=== PATIENT | male | born 1965 | race Caucasian/White ===

== ENCOUNTER 2019-01-03 13:57 | Emergency (ER) | payer OTHER ==
--- NOTE | 2019-01-03 15:07 | RAD ---
Exam: Single view of the chest and 2 views of the abdomen HISTORY: Abdominal pain and constipation COMPARISON: None FINDINGS: 2 views of the abdomen and a single view the chest shows a nonspecific, nonobstructive greg l gas pattern. Air is seen to the level of the rectum. No significant stool retention is seen. No free air or air-fluid levels are seen and upright examination. The cardiomediastinal silhouette is normal in size. There is no evidence of consolidation, mass, or p leural effusion. IMPRESSION: Nonobstructive bowel gas pattern
[2019-01-03 15:15] LABS: #Basophils 0.1 thou/uL (0.0-0.2); #Eosinphils 0.2 thou/uL (0.0-0.7); #Lymphocytes 1.2 thou/uL (1.20-3.40); #Monocytes 0.6 thou/uL (0.11-0.59); #Neutrophils 6.2 thou/uL (1.40-6.50); %Basophils 0.9 % (0.0-1.0); %Eosinophils 2.1 % (0.0-10.0); %Lymphocytes 14.9 % (21.0-51.0); %Monocytes 6.8 % (0.0-10.0); %Neutrophils 75.2 % (42.0-75.0); Hemoglobin 13.7 g/dL (14.0-18.0); Mean Corpuscular HGB CONC 32.5 g/dL (32.0-36.0); Mean Corpuscular Hemoglobin 28.6 pg (27.0-31.0); Mean Corpuscular Volume 88.2 fL (78.0-98.0); Mean Platelet Volume 6.3 fL (7.4-10.4); Platelet Count 196 thou/uL (130-400); RBC Distribution Width 12.4 % (11.5-14.5); Red Blood Cell (RBC) Count 4.77 mill/uL (4.70-6.10); White Blood Cell (WBC) Count 8.3 thou/uL (4.8-10.8)
[2019-01-03] MEDS ORDERED: cefTRIAXone\\ROCEPHIN 1 GM VIAL ONE (15:15)
[2019-01-03] MEDS ORDERED: Morphine 4 MG/ML VIAL ONE (15:15)
[2019-01-03 15:33] LABS: ALT (SGPT) 14 U/L (8-55); AST (SGOT) 5 U/L (5-34); Albumin 3.7 g/dL (3.5-5.0); Alkaline Phosphatase 119 U/L (40-150); Anion Gap 11 mmol/L (10-20); BUN (Urea Nitrogen) 11 mg/dL (8.4-25.7); Bilirubin, Total 0.6 mg/dL (0.2-1.2); Calc. Creatinine Clearance 0 mL/min (70-130); Calcium 8.7 mg/dL (7.8-10.44); Carbon Dioxide 26 mmol/L (22-29); Chloride 105 mmol/L (98-107); Estimated GFR-MDRD 81; Globulin 3.2 g/dL (2.4-3.5); Glucose 96 mg/dL (70-105); Lipase 11 U/L (8-78); Potassium 3.9 mmol/L (3.5-5.1); Protein, Total 6.9 g/dL (6.0-8.3); Sodium 138 mmol/L (136-145)
== END 2019-01-03 16:00 | disposition home or self-care (01) ==
LOC: MADERS 13:57
DX: K43.9 Ventral hernia without obstruction or gangrene (principal); K59.00 Constipation, unspecified; L03.114 Cellulitis of left upper limb; F17.210 Nicotine dependence, cigarettes, uncomplicated; Z79.899 Other long term (current) drug therapy; Z79.51 Long term (current) use of inhaled steroids
CPT/HCPCS: 74022; 80053; 83605; 83690; 84484; 85025; 96374; 96375; J0696; J2270

== ENCOUNTER 2020-03-11 18:36 | Emergency (ER) | payer OTHER, SELFPAY ==
[~2020-03-11 18:36] MED LIST: Iopamidol 370 76% 100 ML VIAL ONE
[2020-03-11 19:39] LABS: #Basophils 0.1 thou/uL (0.0-0.2); #Eosinphils 0.2 thou/uL (0.0-0.7); #Monocytes 0.6 thou/uL (0.11-0.59); #Neutrophils 5.9 thou/uL (1.40-6.50); %Basophils 0.8 % (0.0-1.0); %Eosinophils 2.8 % (0.0-10.0); %Lymphocytes 22.3 % (21.0-51.0); %Monocytes 6.8 % (0.0-10.0); %Neutrophils 67.2 % (42.0-75.0); Hemoglobin 13.8 g/dL (14.0-18.0); Mean Corpuscular HGB CONC 31.7 g/dL (32.0-36.0); Mean Corpuscular Hemoglobin 27.5 pg (27.0-31.0); Mean Corpuscular Volume 86.8 fL (78.0-98.0); Mean Platelet Volume 6.5 fL (7.4-10.4); Platelet Count 238 thou/uL (130-400); RBC Distribution Width 12.6 % (11.5-14.5); Red Blood Cell (RBC) Count 5.03 mill/uL (4.70-6.10); White Blood Cell (WBC) Count 8.8 thou/uL (4.8-10.8)
--- NOTE | 2020-03-11 19:54 | RAD ---
EXAM: 4 views of the right knee HISTORY: Knee pain after trauma COMPARISON: None FINDINGS: No knee effusion is seen. There is no evidence of acute fracture or dislocation. Mild to mo derate tricompartmental degenerative changes are seen. No soft tissue swelling is present. IMPRESSION: Right knee osteoarthritis without evidence of acute osseous abnormality.
[2020-03-11 20:04] LABS: Anion Gap 15 mmol/L (10-20); BUN (Urea Nitrogen) 13 mg/dL (8.4-25.7); CK (CPK) 158 U/L (30-200); Calc. Creatinine Clearance 0 mL/min (70-130); Calcium 8.7 mg/dL (7.8-10.44); Carbon Dioxide 24 mmol/L (22-29); Chloride 103 mmol/L (98-107); Estimated GFR-MDRD 71; Glucose 109 mg/dL (70-105); Potassium 3.7 mmol/L (3.5-5.1); Sodium 138 mmol/L (136-145)
--- NOTE | 2020-03-11 20:08 | CT ---
EXAM: CT brain without contrast HISTORY: Head trauma COMPARISON: None TECHNIQUE: Multiple contiguous axial images were obtained and a CT of the brain without contrast. Sag ittal and coronal reformats were performed. FINDINGS: The brain is normal in morphology and attenuation without focal lesions or confluent areas of infarction. There is no evidence of hydrocephalus, intracranial hemorrhage, or extra-axial fluid collection. The calvarium and overlying soft tissues are unremarkable. There is partial opacification of the bila teral mastoid air cells. Chronic sinus changes are seen in the left maxillary sinus. IMPRESSION: No evidence of acute intracranial abnormality
--- NOTE | 2020-03-11 20:17 | CT ---
EXAM: 1. CT of the chest with contrast 2. CT of the abdomen and pelvis with contrast 3. Limited CT of the thoracic and lumbosacral spine with contrast HISTORY: Trauma with chest pain, abdominal pain, and back pain. COMPARISON: CT abdomen 05/15/2019 TECHNIQUE: 1. Multiple contiguous axial images were obtained in a CT the chest with contrast. Coronal reformats were performed. 2. Multiple contiguous axial images were obtained in a CT of the abdomen and pelvis with contrast. [place] reformats were performed. 3. Limited CTs of the thoracic and lumbosacral spines were performed with contrast. Sagittal and demond nal re-reformats were created based off images obtained in the chest, abdomen, and pelvic CTs. FINDINGS: CT CHEST: Mediastinum: Heart is normal in size without focal cardiac abnormality. No hilar or mediastinal lymph adenopathy. No mediastinal hemorrhage. Small hiatal hernia. Lungs: 1.1 cm peripheral opacity in the right lower lobe may represent a focal area of atelectasis ne ar the major fissure. Pleural space: No pneumothorax or pleural effusion. Thoracic bones: No evidence of acute fracture. Thoracic chest wall: Unremarkable. CT ABDOMEN/PELVIS: Peritoneum: No free air or free fluid, or stranding changes. Liver: Unremarkable. Gallbladder: Small calcified gallstone Adrenal glands: Unremarkable. Kidneys: Unremarkable. Spleen: Unremarkable. Pancreas: Unremarkable. Bowel: Unremarkable. Retroperitoneum: No lymphadenopathy. Pelvis: No focal mass or abnormality. There is questionable hyperdensity of the urine within the urin roberto bladder. Pelvic bones: No acute fracture identified. There is scarring of the lower abdominal wall. LIMITED CT OF THE THORACIC AND LUMBOSACRAL SPINE: No fracture or subluxation is seen. No prevertebral soft tissue swelling are present. Degenerative ch anges are seen throughout the spine. IMPRESSION: 1. No evidence of acute intrathoracic abnormality 2. No evidence of acute intra-abdominal or pelvic abnormality 3. No evidence of acute osseous abnormality of the thoracic or lumbosacral spine. 4. Cholelithiasis
[2020-03-11] MEDS ORDERED: Fentanyl 100 MCG/2 ML VIAL ONE (20:52)
== END 2020-03-11 21:15 | disposition home or self-care (01) ==
LOC: MADERS 18:36
DX: T14.8XXA Other injury of unspecified body region, initial encounter (principal); S80.811A Abrasion, right lower leg, initial encounter; M25.561 Pain in right knee; J44.9 Chronic obstructive pulmonary disease, unspecified; I49.9 Cardiac arrhythmia, unspecified; I49.3 Ventricular premature depolarization; Z87.891 Personal history of nicotine dependence; V89.2XXA Person injured in unspecified motor-vehicle accident, traffic, initial encounter
CPT/HCPCS: 70450; 71260; 74177; 80048; 82550; 85025; 96374; J3010; Q9967

== ENCOUNTER 2021-07-20 18:19 | Emergency (ER) | payer OTHER | END 2021-07-20 20:02 | disposition home or self-care (01) | LOC: MADERS 18:19 | DX: Z43.1 Encounter for attention to gastrostomy (principal); J44.9 Chronic obstructive pulmonary disease, unspecified; I49.3 Ventricular premature depolarization; Z79.899 Other long term (current) drug therapy; Z87.19 Personal history of other diseases of the digestive system | CPT/HCPCS: 99282 ==

== ENCOUNTER 2021-10-07 10:17 | Emergency (ER) | payer SELFPAY ==
[2021-10-07] MEDS ORDERED: Cephalexin 500 MG CAP ONE (10:49)
[2021-10-07] MEDS ORDERED: Bacitracin 1 PK ONE (10:49)
[2021-10-07] MEDS ORDERED: Lidocaine 1% (PF) 30 ML VIAL ONE (10:49)
== END 2021-10-07 11:25 | disposition home or self-care (01) ==
LOC: MADERS 10:17
DX: L03.113 Cellulitis of right upper limb (principal); J44.9 Chronic obstructive pulmonary disease, unspecified; Z87.891 Personal history of nicotine dependence; Z79.899 Other long term (current) drug therapy
CPT/HCPCS: 10060; J2001